=== PATIENT | male | born 1995 | race Caucasian/White ===

== ENCOUNTER 2017-12-09 23:26 | Emergency (ER) | payer OTHER ==
[~2017-12-09] VITALS: Ht 180.3 cm; Wt 70.4 kg
[~2017-12-09 23:26] MED LIST: KEFLEX250 MG OR; NO HOME MEDS
[2017-12-10] MEDS ORDERED: PERCOCET 5/325M1 TAB PO (00:38)
[2017-12-10] MEDS ORDERED: GENTAMICIN0.31 OU (00:38)
[2017-12-10 01:10] VITALS: BP 122/72
== END 2017-12-10 01:12 | disposition home or self-care (01) | DRG 125 ==
LOC: ED 23:26
DX: H16.133 Photokeratitis, bilateral (principal); W89.0XXA Exposure to welding light (arc), initial encounter; Y93.89 Activity, other specified; Y92.69 Other specified industrial and construction area as the place of occurrence of the external cause